=== PATIENT | female | born 1975 | race Caucasian/White ===

== ENCOUNTER 2023-10-26 10:05 | Emergency (ER) | payer MEDICAID ==
[~2023-10-26] VITALS: Ht 154.9 cm; Wt 65.7 kg
[2023-10-26] MEDS ORDERED: MECL25CH38 PO (11:50)
[2023-10-26 12:04] VITALS: BP 119/81; PULSE 76; RESP 18; O2SAT 98
== END 2023-10-26 12:06 | disposition home or self-care (01) ==
LOC: ER 10:05
DX: R42 Dizziness and giddiness (principal); M54.2 Cervicalgia; I10 Essential (primary) hypertension; R51.9 Headache, unspecified
CPT/HCPCS: 70450; 82962